=== PATIENT | male | born 1965 | race Caucasian/White ===

== ENCOUNTER 2022-07-18 09:01 | Emergency (ER) | payer MEDICAID ==
[~2022-07-18] VITALS: Ht 167.6 cm; Wt 75.0 kg
[2022-07-18 09:38] VITALS: BP 141/49
[2022-07-18] MEDS ORDERED: DIPHENHYDRAMINE 12.5MG/5ML UDC PO ONE (11:15)
[2022-07-18] MEDS ORDERED: DIPH35CR TP (11:22)
[2022-07-18] MEDS ORDERED: TC1U15 TP (11:22)
== END 2022-07-18 12:19 | disposition home or self-care (01) ==
LOC: ER 09:01
DX: R21 Rash and other nonspecific skin eruption (principal); R22.31 Localized swelling, mass and lump, right upper limb
CPT/HCPCS: 99283; Q0163